=== PATIENT | male | born 1965 | race Caucasian/White ===

== ENCOUNTER 2017-10-08 07:46 | Day surgery (SDC) | payer OTHER ==
[2017-10-08] MEDS: NS 1,000 ML IV ×2 (08:00)
[2017-10-08] MEDS ORDERED: PROPOFOL 200 MG/20 ML VIAL As Ordered ×2 (08:38)
== END 2017-10-08 09:13 | disposition home or self-care (01) ==
LOC: M OPP 07:46
DX: Z12.11 Encounter for screening for malignant neoplasm of colon (principal); I10 Essential (primary) hypertension; M30.0 Polyarteritis nodosa; K21.9 Gastro-esophageal reflux disease without esophagitis; Z79.899 Other long term (current) drug therapy; Z88.8 Allergy status to other drugs, medicaments and biological substances
CPT/HCPCS: 45378

== ENCOUNTER → 2019-08-04 | Outpatient (CLI) | payer OTHER ==
[~2019-08-04] MED LIST: CALCTAB68 PO; CART120C PO; HYDR200T3 PO; OMEP1CAP73 PO; PRED5TA PO; VENL150C43 PO; VITA-122 PO
--- NOTE | 2019-08-05 01:25 | REPPI ---
Clinical: Left elbow pain . Technique: AP, lateral, bilateral oblique views of the left elbow. Findings: No acute fracture or dislocation is appreciated. Joint spaces and surrounding soft tissues appear normal. Lateral view demonstrates normal positioning to the anterior and posterior fat pads without evidence for effusion/hemarthrosis. No subcutaneous emphysema or foreign body identified. Impression: Normal left elbow radiographs. Electronically Signed by Jeevan Cottrell MD 08/05/2019 01:17 A
== END ==
LOC: M PLAIMG 08:58
PROVIDERS: ATTEND Physician Assistant
DX: M25.522 Pain in left elbow (principal)

== ENCOUNTER → 2022-01-15 | Outpatient (CLI) | payer OTHER | LOC: M RAD 06:49 | PROVIDERS: ATTEND Student in an Organized Health Care Education/Training Program | DX: K40.30 Unilateral inguinal hernia, with obstruction, without gangrene, not specified as recurrent (principal); R10.32 Left lower quadrant pain ==

== ENCOUNTER → 2022-08-25 | Outpatient (CLI) | payer OTHER ==
[~2022-08-25] MED LIST changes: +ASPI81CH33 PO
== END ==
LOC: M EKG 09:34
PROVIDERS: ATTEND Anesthesiology
DX: Z01.818 Encounter for other preprocedural examination (principal)

== ENCOUNTER → 2022-08-25 | Outpatient (CLI) | payer OTHER | LOC: M LABSMTC 09:37 | PROVIDERS: ATTEND Anesthesiology | DX: Z01.812 Encounter for preprocedural laboratory examination (principal); Z20.822 Contact with and (suspected) exposure to COVID-19 ==

== ENCOUNTER 2022-08-30 06:16 | Day surgery (SDC) | payer OTHER ==
[~2022-08-30] VITALS: Ht 182.9 cm; Wt 98.0 kg
[~2022-08-30 06:16] MED LIST changes: +ceFAZolin SOD 2 GM in IV 1 EA IV ONE
[2022-08-30] MEDS ORDERED: LR 1,000 ML IV SCH ×2 (06:45→09:40)
[2022-08-30] MEDS ORDERED: propofoL 200 MG/20 ML VIAL As Ordered ONE (07:13)
[2022-08-30] MEDS ORDERED: ROCURONIUM BROMIDE 50MG/5ML VIAL As Ordered ONE ×2 (07:13→08:36)
[2022-08-30] MEDS ORDERED: MIDAZOLAM INJ 2MG/2ML VIAL As Ordered ONE (07:13)
[2022-08-30] MEDS ORDERED: LIDOCAINE 2% 100MG/5ML SDV (FOR ANES.) As Ordered ONE (07:13)
[2022-08-30] MEDS ORDERED: ONDANSETRON 4MG 2ML VIAL As Ordered ONE (07:13)
[2022-08-30] MEDS ORDERED: fentaNYL 100 MCG/2 ML INJECTION As Ordered ONE ×2 (07:13→08:34)
[2022-08-30] MEDS ORDERED: BUPIVACAINE/EPIN 0.25% 30ML VIAL As Ordered ONE (07:23)
[2022-08-30] MEDS ORDERED: ACETAMINOPHEN 1000MG 100ML IV BAG As Ordered ONE (08:22)
[2022-08-30] MEDS ORDERED: SUGAMMADEX SODIUM 500 MG/5 ML VIAL (BRIDION) As Ordered ONE (08:34)
[2022-08-30] MEDS ORDERED: KETOROLAC 60MG 2ML VIAL As Ordered ONE (08:34)
[2022-08-30] MEDS ORDERED: ePHEDrine SULFATE 25 MG/5 ML(5MG/ML) SYRINGE As Ordered ONE (08:37)
[2022-08-30] MEDS ORDERED: fentaNYL 100 MCG/2 ML INJECTION IV PRN (09:40)
[2022-08-30] MEDS ORDERED: MEPERIDINE 25 MG/ML 1ML VIAL IV PRN (09:40)
[2022-08-30] MEDS ORDERED: ONDANSETRON 4MG 2ML VIAL IV PRN (09:40)
[2022-08-30] MEDS ORDERED: oxyCODONE 5MG TAB PO PRN (09:40)
[2022-08-30] MEDS: HYDROMORPHONE HCL 0.5 MG/ 0.5 ML SYRINGE IV PRN ×2 (10:18→10:23)
[2022-08-30] MEDS ORDERED: NORCO, ANEXSIA 5/325MG TABLET (HYDROcodone/ACETAMINOPHEN) PO PRN (10:30)
[2022-08-30 12:12] VITALS: BP 152/79
== END 2022-08-30 12:33 | disposition home or self-care (01) ==
LOC: M SDC 06:16
PROVIDERS: ATTEND Surgery
DX: K40.20 Bilateral inguinal hernia, without obstruction or gangrene, not specified as recurrent (principal); I10 Essential (primary) hypertension; M00-M99 Diseases of the musculoskeletal system and connective tissue; Z79.82 Long term (current) use of aspirin; Z79.52 Long term (current) use of systemic steroids; Z79.899 Other long term (current) drug therapy; K21.9 Gastro-esophageal reflux disease without esophagitis
CPT/HCPCS: 49650; C1781; J0131; J0690; J1100; J1170; J1885; J2250; J2405; J3010; S0020; S2900

== ENCOUNTER → 2024-01-26 | Outpatient (CLI) | payer OTHER ==
[~2024-01-26] MED LIST changes: -HYDR200T3 PO; +HYDR200T46 PO; -ceFAZolin SOD 2 GM in IV 1 EA IV ONE
== END ==
LOC: M WUC 09:37
PROVIDERS: ATTEND Nurse Practitioner Family
DX: S22.42XA Multiple fractures of ribs, left side, initial encounter for closed fracture (principal); R07.82 Intercostal pain; W01.10XA Fall on same level from slipping, tripping and stumbling with subsequent striking against unspecified object, initial encounter; Y93.9 Activity, unspecified; Y92.9 Unspecified place or not applicable

== ENCOUNTER → 2024-02-10 | Outpatient (REF) | payer OTHER ==
[2024-02-10 18:55] LABS: PERCENT SATURATION 19.6 % (19.7-50.0)
[2024-02-10 18:57] LABS: FERRITIN 103.3 NG/ML (10.5-307.3)
== END ==
LOC: M LAB REF 16:25
PROVIDERS: ATTEND Internal Medicine
DX: R53.83 Other fatigue (principal)

== ENCOUNTER → 2024-02-17 | Outpatient (CLI) | payer OTHER ==
[~2024-02-17] MED LIST changes: +GASTROGRAFIN SOLUTION 30ML As Ordered ONE
== END ==
LOC: M RAD 13:54
PROVIDERS: ATTEND Internal Medicine
DX: R10.12 Left upper quadrant pain (principal); N28.1 Cyst of kidney, acquired
CPT/HCPCS: 74176; Q9963

== ENCOUNTER → 2024-05-17 | Outpatient (CLI) | payer OTHER ==
[~2024-05-17] MED LIST changes: -GASTROGRAFIN SOLUTION 30ML As Ordered ONE
== END ==
LOC: M RAD 09:02
PROVIDERS: ATTEND Internal Medicine
DX: N28.1 Cyst of kidney, acquired (principal)

== ENCOUNTER → 2024-05-20 | Outpatient (CLI) | payer OTHER | LOC: M RAD 13:17 | PROVIDERS: ATTEND Student in an Organized Health Care Education/Training Program | DX: M79.661 Pain in right lower leg (principal) ==

== ENCOUNTER → 2024-08-12 | Outpatient (REF) | payer OTHER | LOC: M LAB REF 13:01 | PROVIDERS: ATTEND Internal Medicine | DX: M79.10 Myalgia, unspecified site (principal) ==

== ENCOUNTER → 2024-09-07 | Outpatient (CLI) | payer OTHER | LOC: M RAD 11:54 | PROVIDERS: ATTEND Internal Medicine | DX: R10.32 Left lower quadrant pain (principal) ==

== ENCOUNTER → 2025-02-17 | Outpatient (CLI) | payer OTHER | LOC: M RAD 10:52 | PROVIDERS: ATTEND Internal Medicine | DX: G89.4 Chronic pain syndrome (principal); M47.816 Spondylosis without myelopathy or radiculopathy, lumbar region ==

== ENCOUNTER → 2025-02-18 | Outpatient (CLI) | payer OTHER | LOC: M RAD 14:31 | PROVIDERS: ATTEND Internal Medicine | DX: M50.30 Other cervical disc degeneration, unspecified cervical region (principal) ==